=== PATIENT | female | born 1990 | race African-American/Black ===

== ENCOUNTER 2020-02-05 19:17 | Emergency (ER) | payer SELFPAY ==
[~2020-02-05] VITALS: Ht 154.9 cm; Wt 105.6 kg
[~2020-02-05 19:17] MED LIST: SULF1TAB24 PO
--- NOTE | 2020-02-05 19:47 | PHYS DOC ---
Past History Past Medical History: No Pertinent History, Anemia, Ovarian Cyst, Other Past Medical History Uterine fibroids Past Surgical History: No Surgical History Smoking: Cigarettes Alcohol Use: None Drug Use: None General Adult EDM: Chief Complaint: LOWER EXTREMITY SWELLING HPI: HPI: ".. My leg are swelling.. but the main thing is this pain in my lower abdomen.. here on the right.. I ve had ovarian cyst s before.. and I know I got fibromas in my Uterus.. but the pain is worse tonight..." Patient is a 29 year old female who presents with above hx and complaints of right lower abdomen pain. Patient pain probably started tonight. Does have some mild bilateral lower leg edema. Patient is 5 and miscarry x3. No history of STDs one lifetime sex partner. Has had uterine fibromas since diagnosis in 2012. Has had dysfunctional uterine bleeding. Has seen [facility] and OB physicians who recommended she delay hysterectomy until completes of . Patient denies any trauma. Patient denies any recent travel outside [facility]. No history immunosuppression. No specific ill contacts. No current vaginal discharge. Did complete a. At the last week of January. Review of Systems: Review of Systems: Constitutional: Denies fever or chills Eyes: Denies change in visual acuity HENT: Denies nasal congestion or sore throat Respiratory: Denies cough or shortness of breath Cardiovascular: Denies chest pain or edema GI: Complains of lower right abdominal pain, nausea,. Denies vomiting, bloody stools or diarrhea : Denies dysuria Musculoskeletal: Denies back pain or joint pain Integument: Denies rash Neurologic: Denies headache, focal weakness or sensory changes Endocrine: Denies polyuria or polydipsia Lymphatic: Denies swollen glands Psychiatric: Denies depression or anxiety Heart Score: Risk Factors: Risk Factors: DM, Current or recent (<one month) smoker, HTN, HLP, family history of CAD, obesity. Risk Scores: Score 0 - 3: 2.5% MACE over next 6 weeks - Discharge Home Score 4 - 6: 20.3% MACE over next 6 weeks - Admit for Clinical Observation Score 7 - 10: 72.7% MACE over next 6 weeks - Early Invasive Strategies Family History: Family History: There is family history of kidney disease, gallbladder disease, and cancer Current Medications: Current Meds: See nursing for home meds Allergies: Allergies: Allergies Coded Allergies Type Severity Reaction Last Updated Verified Amoxicillin Allergy Intermediate Rash 01/07/14 No Physical Exam: PE: Constitutional: Moderate acute distress, non-toxic appearance. [] HENT: Normocephalic, atraumatic, bilateral external ears normal, oropharynx moist, no oral exudates, nose normal. [] Eyes: PERRLA, EOMI, conjunctiva normal, no discharge. [] Neck: Normal range of motion, no tenderness, supple, no stridor. [] Cardiovascular: Bradycardia heart rate regular rhythm, no murmur [] Lungs & Thorax: Bilateral breath sounds equal apex on auscultation [] Abdomen: Bowel sounds decreased, mild distention, soft, right mid and lower abdomen tenderness, no masses, no pulsatile masses. [] Rebound to right mid and lower abdomen. Skin: Warm, dry, no erythema, no rash. [] Back: No tenderness, no CVA tenderness. [] Extremities: No tenderness, no cyanosis, no clubbing, ROM intact, trace bilateral edema. Mild psoas on right. Neurologic: Alert and oriented X 3, normal motor function, normal sensory function, no focal deficits noted. [] Psychologic: Affect anxious, judgement normal, mood normal. [] EKG: EKG: My interpretation of EKG shows a sinus bradycardia at 56 bpm. Does occasionally have an atrial premature complex. No findings acute STEMI with contralateral changes. [] Radiology/Procedures: Radiology/Procedures: [address] [address] IMAGING REPORT Signed PATIENT: COLETTE SWANSON ACCOUNT: [id number] : 1990 LOCATION: ER AGE: 29 SEX: F EXAM STATUS: REG ER ORD. PHYSICIAN: FRANNIE SAMUEL MD REASON: RLQ AND RT FLANK PAIN.HX FIBROIDS PROCEDURE: ACUTE ABDOMEN SERIES Exam: Acute abdominal series INDICATION: Right lower quadrant right flank pain TECHNIQUE: Frontal view of the chest with upright and supine views of the abdomen Comparisons: None FINDINGS: The cardiomediastinal silhouette and pulmonary vessels are within normal limits. The lung and pleural spaces are clear. Air and stool are noted throughout the colon to level the rectum in a nonobstructive bowel gas pattern. No suspicious masses or calcifications. Visualized osseous structures are unremarkable. IMPRESSION: 1. No acute cardiopulmonary process. 2. Nonobstructive bowel gas pattern. Electronically signed by: Doreen Sepulveda MD (02/05/2020 10:14 PM) [facility] DICTATED AND SIGNED BY: DOREEN SEPULVEDA MD DATE: 02/05/202213 CC: FRANNIE SAMUEL MD; PCP,NO ~ [][address] [address] IMAGING REPORT Signed PATIENT: COLETTE SWANSON ACCOUNT: [id number] : 1990 LOCATION: ER AGE: 29 SEX: F EXAM STATUS: REG ER ORD. PHYSICIAN: FRANNIE SAMUEL MD REASON: OMNI 300,75ML IV.OMNI 240,30ML PO.RLQ & RT FLANK PAIN.HX FIBROIDS PROCEDURE: CT ABD PELV W/ORAL&IV CONTRAST CT abdomen and pelvis with contrast: Reason for examination: Right lower quadrant and right flank pain. History of fibroids. Helical images were obtained through the abdomen and pelvis with intravenous administration of 75 cc Omnipaque 300 and 30 cc Omnipaque 240 orally. Reconstruction was performed in sagittal and coronal planes. Exposure: One or more of the following individualized dose reduction techniques were utilized for this examination: 1. Automated exposure control 2. Adjustment of the mA and/or kV according to patient size 3. Use of iterative reconstruction technique. The lung bases are clear. The heart size is normal with no pericardial effusion. There appears be a subtle area of decreased density within the right lobe of the liver. This could represent a hemangioma. No abnormality seen at the spleen, pancreas or gallbladder. No abnormality seen at the right adrenal gland. The left adrenal gland however contains a 1.8 cm circumscribed nodule consistent with probable adenoma. No abnormality seen at the abdominal aorta or inferior vena cava.No abnormality seen at the appendix the colon shows no diverticulosis, diverticulitis or colitis. The stomach shows no abnormal wall thickening. The small intestinal tract shows no abnormal dilatation or obstruction. The kidneys show hypodense lesions bilaterally consistent with cysts with the largest located at the midpole of the left kidney measuring 2 cm in size. No renal calculi, hydronephrosis or obstructive uropathy is evident. No abnormality seen at the bladder. The uterus however does contain a large 4.7 cm hypodense lesion consistent with a fibroid superiorly. This has increased in size when compared to pelvic ultrasound dated 11/11/2014. There also appear to be isodense nodules measuring up to 5 cm in size consistent with fibroids. No abnormalities of seen at the ovaries. No free fluid or free air seen in the abdomen or pelvis. IMPRESSION: Subtle hypodense lesion in the right lobe of the liver which could represent a hemangioma. 1.8 cm nodule in the left adrenal gland consistent with an adenoma. Bilateral renal cysts with the largest at the midpole the left kidney measuring 2 cm in greatest dimension. 4.7 cm hypodense nodule consistent with a fibroid in the uterus superiorly. This has increased in size from 2.5 cm on pelvic ultrasound dated 11/11/2014. Additional isodense nodules measuring up to 5 cm in size consistent with fibroids. Electronically signed by: Isaias Ruiz MD (02/06/2020 12:02 AM) [facility] DICTATED AND SIGNED BY: ISAIAS RUIZ MD DATE: 02/06/20 0002 CC: FRANNIE SAMUEL MD; PCP,NO ~ Course & Med Decision Making: Course & Med Decision Making Pertinent Labs and Imaging studies reviewed. (See chart for details) Patient stay on clear fluid diet for the next 24 to 48 hours. No solids. No milk products. Allow bowel rest. Patient encouraged follow-up with [facility]. Patient informed that her fibroids have doubled in size since last exam. Patient return if any concerns. Patient pain was almost relieved at time of discharge. Take a vitamin or a multivitamin of iron daily. Must follow-up. Impression: 1. Abdomen pain 2. Uterine fibroids-had doubled in size since last exam 3. History of ovarian cyst 4. History of dysfunctional uterine bleeding 5. Anemia hemoglobin 11. 6 with microcytic hypochromic indices 76/24 6. Constipation [] Tomasz Disclaimer: Tomasz Disclaimer: This electronic medical record was generated, in whole or in part, using a voice recognition dictation system. Departure Departure: Disposition: 01 HOME/RESIDENCE PRIOR TO ADM Condition: STABLE Referrals: PCP,NO (PCP) Tomasz Disclaimer This chart was dictated in whole or in part using Voice Recognition software in a busy, high-work load, and often noisy Emergency Department environment. It may contain unintended and wholly unrecognized errors or omissions. FRANNIE SAMUEL MD Feb 05, 2020 19:47
[2020-02-05 20:48] LABS: AMPHETAMINE/METHAMPHETAMINE NEG (NEG); BARBITURATES NEG (NEG); BENZODIAZEPINES NEG (NEG); CANNABINOIDS POS (NEG); COCAINE NEG (NEG); METHADONE NEG (NEG); OPIATES POS (NEG); PHENCYCLIDINE NEG (NEG)
[2020-02-05 21:05] LABS: BACTERIA,URINE 0 /HPF (0-FEW); BILIRUBIN,URINE NEG (NEG); CLARITY,URINE HAZY; COLOR,URINE YELLOW; GLUCOSE,URINE NEG (NEG); NITRITE,URINE NEG (NEG); SQUAMOUS EPITHELIAL CELL,UR MANY /LPF; UROBILINOGEN,URINE 0.2 mg/dL (0.2 mg/dL)
[2020-02-05 21:07] LABS: U PREG PATIENT NEGATIVE (NEG)
[2020-02-05] MEDS ORDERED: IV RINGERS SOLUTION,LACTATED 1,000 ML IV SCH (21:28)
[2020-02-05] MEDS ORDERED: FAMOTIDINE 20 MG/2 ML VIAL IVP ONE (21:30)
[2020-02-05] MEDS ORDERED: ONDANSETRON PF 4 MG/2 ML VIAL. IVP ONE (21:30)
[2020-02-05] MEDS ORDERED: IOHEXOL 240 MG/ML 50ML VIAL. ONE (21:35)
[2020-02-05] MEDS ORDERED: MORPHINE SULFATE 10 MG/ML SYRINGE. SQ ONE (21:45)
[2020-02-05 21:49] LABS: BASO % 0 % (0-3); EOS # 0.2 x10^3/uL (0.0-0.7); EOS % 2 % (0-3); HEMATOCRIT 37.4 % (36.0-47.0); HEMOGLOBIN 11.6 g/dL (12.0-15.5); LYMPH # 2.4 x10^3/uL (1.0-4.8); LYMPH % 26 % (24-48); MEAN CORPUSCULAR HEMOGLOBIN 24 pg (25-35); MEAN CORPUSCULAR HGB CONC 31 g/dL (31-37); MEAN CORPUSCULAR VOLUME 76 fL (79-100); MONO # 0.5 x10^3/uL (0.0-1.1); MONO % 6 % (0-9); NEUT # 6.2 x10^3uL (1.8-7.7); NEUT % 66 % (31-73); PLATELET COUNT 316 x10^3/uL (140-400); RED BLOOD COUNT 4.94 x10^6/uL (3.50-5.40); RED CELL DISTRIBUTION WIDTH 17.4 % (11.5-14.5); WHITE BLOOD COUNT 9.4 x10^3/uL (4.0-11.0)
[2020-02-05 21:50] LABS: CALCIUM 9.1 mg/dL (8.5-10.1); CREATININE 0.8 mg/dL (0.6-1.0); GFR 104.1; POTASSIUM 3.4 mmol/L (3.5-5.1)
[2020-02-05 21:56] LABS: ALBUMIN 3.8 g/dL (3.4-5.0); DIRECT BILIRUBIN 0.1 mg/dL (0.0-0.2); TOTAL BILIRUBIN 0.4 mg/dL (0.2-1.0); TOTAL PROTEIN 8.6 g/dL (6.4-8.2)
[2020-02-05] MEDS ORDERED: IOHEXOL 300 MG/ML 75 ML VIAL. IV ONE (22:15)
--- NOTE | 2020-02-05 22:17 | RAD ---
Exam: Acute abdominal series INDICATION: Right lower quadrant right flank pain TECHNIQUE: Frontal view of the chest with upright and supine views of the abdomen Comparisons: None FINDINGS: The cardiomediastinal silhouette and pulmonary vessels are within normal limits. The lung and pleural spaces are clear. Air and stool are noted throughout the colon to level the rectum in a nonobstructive bowel gas pattern. No suspicious masses or calcifications. Visualized osseous structures are unremarkable. IMPRESSION: 1. No acute cardiopulmonary process. 2. Nonobstructive bowel gas pattern. Electronically signed by: Doreen Sanchez MD (02/05/2020 10:14 PM) [facility]
--- NOTE | 2020-02-05 23:29 | EKG ---
[address] [address] Test Date: 2020-02-05 Test Time: 22:24:54 Pat Name: COLETTE SWANSON Department: Room: Gender: F Engineering Professor: RADHA : 1990 Requested By: FRANNIE SAMUEL Order Number: [id number] Reading MD: Measurements Intervals [place] Rate: 56 P: 0 WV: 170 QRS: 37 QRSD: 84 T: 54 QT: 434 QTc: 421 Interpretive Statements SINUS RHYTHM ATRIAL PREMATURE COMPLEX(ES) LOW LIMB LEAD VOLTAGE NO SPECIFIC ECG ABNORMALITIES RI6.02 No previous ECG available for comparison
--- NOTE | 2020-02-06 00:05 | RAD ---
CT abdomen and pelvis with contrast: Reason for examination: Right lower quadrant and right flank pain. History of fibroids. Helical images were obtained through the abdomen and pelvis with intravenous administration of 75 cc Omnipaque 300 and 30 cc Omnipaque 240 orally. Reconstruction was performed in sagittal and coronal planes. Exposure: One or more of the following individualized dose reduction techniques were utilized for this examination: 1. Automated exposure control 2. Adjustment of the mA and/or kV according to patient size 3. Use of iterative reconstruction technique. The lung bases are clear. The heart size is normal with no pericardial effusion. There appears be a subtle area of decreased density within the right lobe of the liver. This could represent a hemangioma. No abnormality seen at the spleen, pancreas or gallbladder. No abnormality seen at the right adrenal gland. The left adrenal gland however contains a 1.8 cm circumscribed nodule consistent with probable adenoma. No abnormality seen at the abdominal aorta or inferior vena cava.No abnormality seen at the appendix the colon shows no diverticulosis, diverticulitis or colitis. The stomach shows no abnormal wall thickening. The small intestinal tract shows no abnormal dilatation or obstruction. The kidneys show hypodense lesions bilaterally consistent with cysts with the largest located at the midpole of the left kidney measuring 2 cm in size. No renal calculi, hydronephrosis or obstructive uropathy is evident. No abnormality seen at the bladder. The uterus however does contain a large 4.7 cm hypodense lesion consistent with a fibroid superiorly. This has increased in size when compared to pelvic ultrasound dated 11/11/2014. There also appear to be isodense nodules measuring up to 5 cm in size consistent with fibroids. No abnormalities of seen at the ovaries. No free fluid or free air seen in the abdomen or pelvis. IMPRESSION: Subtle hypodense lesion in the right lobe of the liver which could represent a hemangioma. 1.8 cm nodule in the left adrenal gland consistent with an adenoma. Bilateral renal cysts with the largest at the midpole the left kidney measuring 2 cm in greatest dimension. 4.7 cm hypodense nodule consistent with a fibroid in the uterus superiorly. This has increased in size from 2.5 cm on pelvic ultrasound dated 11/11/2014. Additional isodense nodules measuring up to 5 cm in size consistent with fibroids. Electronically signed by: Stacia Chavez MD (02/06/2020 12:02 AM) [facility]
[2020-02-06] MEDS ORDERED: MAGNESIUM HYDROXIDE 2,400 MG/30 ML ORAL.SUSP. PO ONE (00:30)
[2020-02-06] MEDS ORDERED: MAGNESIUM HYDROXIDE 2,400 MG/30 ML ORAL.SUSP. ONE (00:32)
[2020-02-06 00:36] VITALS: BP 160/82
== END 2020-02-06 00:37 | disposition home or self-care (01) ==
LOC: ER 19:17
DX: D25.9 Leiomyoma of uterus, unspecified (principal); D64.9 Anemia, unspecified; K59.00 Constipation, unspecified; F17.210 Nicotine dependence, cigarettes, uncomplicated; Z86.2 Personal history of diseases of the blood and blood-forming organs and certain disorders involving the immune mechanism; Z88.1 Allergy status to other antibiotic agents
CPT/HCPCS: 36415; 74022; 74177; 80048; 80076; 80307; 81001; 81025; 82150; 83690; 85025; 85610; 85730; 87086; 93005; 96361; 96372; 96374; 96375; 99285; J2270; J2405; J3490; J7120; Q9967; 87077; 87186

== ENCOUNTER 2020-12-07 23:10 | Emergency (ER) | payer SELFPAY ==
[~2020-12-07] VITALS: Ht 154.9 cm; Wt 105.6 kg
[2020-12-07 23:30] VITALS: BP 158/69
[2020-12-08] MEDS ORDERED: CLINDAMYCIN HCL 150 MG CAPSULE ONE (00:13)
[2020-12-08] MEDS ORDERED: KETOROLAC 60 MG/2 ML VIAL. IM ONE ×2 (00:13→00:15)
[2020-12-08] MEDS ORDERED: NAPR-682 PO (00:15)
[2020-12-08] MEDS ORDERED: CLINDAMYCIN HCL 150 MG CAPSULE PO ONE (00:15)
[2020-12-08] MEDS ORDERED: CLIN300C9 PO (00:15)
[2020-12-08] MEDS ORDERED: CHLO15MO2 PO (00:15)
--- NOTE | 2020-12-08 00:15 | PHYS DOC ---
Past History Past Medical History: No Pertinent History, Anemia, Ovarian Cyst, Other Additional Past Medical Histor: FIBROID TUMOR Past Surgical History: No Surgical History Smoking: Cigarettes Alcohol Use: Occasionally Drug Use: None General Adult EDM: Chief Complaint: Right lower molar tooth ache HPI: HPI: 30-year-old female comes the emergency department complaining of tooth ache and a concern for a possible dental infection, she said that she had pain for several months but it got worse in the last few days, complains of pain with chewing, denies any difficulty breathing or swallowing, no voice change, no fevers or chills, no neck stiffness or photophobia, there is a dull and throbbing pain that radiates from her lower jaw to the tooth, says that she has a dental appointment on December 18 Review of Systems: Review of Systems: General: no fevers , no chills, no general weakness Eyes: no blurred vision, no diplopia Skin: no rashes Neck: no swelling, no neck stiffness, no neck pain Heme: no bleeding, no lymph node enlargement Ear/Nose/Throat: No sore throat, no runny nose, no hearing loss, no difficulty swallowing, positive for tooth ache Cardiovascular: no Chest pain, no palpitations Respiratory: No dyspnea, no cough, no hemoptysis Gastrointestinal: No abdominal pain, no nausea, no vomiting, no diarrhea, no blood in stool Genitourinary: no dysuria, no hematuria Musculoskeletal: no back pain, no leg pain, no arm pain, no arthralgia Neurologic: no headaches, no dizziness, no focal numbness/tingling, no focal w eakness Psych: no depression, no anxiety, no SI/HI *All review of systems are negative other than what is noted above Allergies: Allergies: Allergies Coded Allergies Type Severity Reaction Last Updated Verified amoxicillin Allergy Intermediate Rash 01/07/14 No Physical Exam: PE: Gen-well appearing, no acute distress Head- normocephalic/atraumatic ENT: atraumatic, oropharynx clear, no uvular swelling or deviation, no obvious tonsillar swelling or exudates, no lesions on the hard or soft palate, here is a cracked tooth in the right rear molar area, no trismus or pooling of secretions, tympanic membranes are clear and equal bilaterally, no mastoid tenderness neck: Supple, full range of motion, strength, no rigidity, no JVD lungs: No distress, speaks in full sentences cardiovascular: Regular rate, no JVD, peripheral circulation intact in all extremities abdomen: atraumatic, nondistended musculoskeletal: Full range of motion and strength in all extremities, atraumatic skin: Intact, no rashes neurologic: Alert and oriented x4, no focal deficits psych: Normal mood and affect Current Patient Data: Vital Signs: Vital Signs Date Time Temp Pulse Resp B/P (MAP) Pulse Ox O2 Delivery O2 Flow Rate FiO2 12/07/20 23:30 99.0 70 18 158/69 100 Room Air EKG: EKG: [] Radiology/Procedures: Radiology/Procedures: [] Heart Score: C/O Chest Pain: No Risk Factors: Risk Factors: DM, Current or recent (<one month) smoker, HTN, HLP, family history of CAD, obesity. Risk Scores: Score 0 - 3: 2.5% MACE over next 6 weeks - Discharge Home Score 4 - 6: 20.3% MACE over next 6 weeks - Admit for Clinical Observation Score 7 - 10: 72.7% MACE over next 6 weeks - Early Invasive Strategies Course & Med Decision Making: Course & Med Decision Making Pertinent Labs and Imaging studies reviewed. (See chart for details) [] Patient presented to the emergency department with a cracked tooth, possibly an early periapical abscess but there is nothing drainable in the ER, no signs of any airway compromise, no claudication 3D imaging, offered the patient some pain medicine and antibiotics and a did advise that she is to follow-up more urgently with a dentist rather than 11 days from now and patient says that she can call tomorrow to try to get an earlier appointment. Patient was seen in the ED for a tooth ache, there is no apparent evidence of any emergency medical pathology at this time, patient was advised follow-up with a dentist in the next 24-48 hours and to return to the ED before then if any new or worsening / concerning symptoms had developed. All questions and concerns were addressed at time of disposition Dragon Disclaimer: Dragon Disclaimer: This electronic medical record was generated, in whole or in part, using a voice recognition dictation system. Departure Departure: Impression: Primary Impression: Toothache Disposition: HOME / SELF CARE / HOMELESS Condition: IMPROVED Referrals: PCPLETA (PCP) Patient Instructions: Toothache-Brief Additional Instructions: I recommend that you see a dentist before December 18 and I am giving you a list of local dental practitioners, I recommend that you get follow-up in the next 24 to 48 hours and I am giving you a list of local clinics, please take the antibiotics for their entire course, eat a soft diet, return to the nearest emergency room before follow-up if any new or worsening/concerning symptoms develop Scripts Chlorhexidine Gluconate (PERIDEX) 15 Ml Mouthwash 15 ML PO BID for infection for 5 Days, #150 ML 0 Refills Prov: CATHI SANTIZO MD 12/08/20 Clindamycin Hcl (CLINDAMYCIN HCL) 300 Mg Capsule 1 CAP PO TID for infection, #21 CAP Prov: CATHI SANTIZO MD 12/08/20 Naproxen Sodium (ANAPROX DS) 550 Mg Tablet 1 TAB PO BID for pain for 5 Days, #10 TAB 0 Refills Prov: CATHI SANTIZO MD 12/08/20 CATHI SANTIZO MD Dec 08, 2020 00:15
== END 2020-12-08 00:24 | disposition home or self-care (01) ==
LOC: ER 23:10
DX: K08.89 Other specified disorders of teeth and supporting structures (principal); F17.210 Nicotine dependence, cigarettes, uncomplicated; Z86.2 Personal history of diseases of the blood and blood-forming organs and certain disorders involving the immune mechanism; Z88.1 Allergy status to other antibiotic agents
CPT/HCPCS: 96372; 99283; J1885